=== PATIENT | female | born 1935 | race Caucasian/White ===

== ENCOUNTER → 2016-11-06 | Outpatient (REF) | payer MEDICARE, BC ==
[~2016-11-06] MED LIST: ASCO500T7 PO; ATN50T PO; CEPH500C PO; CTLP20T PO; HYDR-33 PO; IBUP100T9 PO; METH-288 PO; MULT-954 PO; QTP100T PO; QUET100T29 PO; TMZP15C PO; TRAM-291ED PO; TRM50T PO
[2016-11-06 10:41] LABS: BILIRUBIN,URINE Negative (Negative); CLARITY,URINE Clear; COLOR,URINE Yellow; GLUCOSE, URINE (UA) Negative (Negative); LEUKOCYTE ESTERASE ,URINE Negative (Negative); UROBILINOGEN,URINE 0.2 mg/dL (0.2-1.0)
== END ==
LOC: LAB 09:58
PROVIDERS: ATTEND Family Medicine
DX: N39.0 Urinary tract infection, site not specified (principal)
CPT/HCPCS: 81003